=== PATIENT | male | born 1960 | race Caucasian/White ===

== ENCOUNTER 2017-04-16 08:42 | Observation (INO) | payer OTHER ==
[2017-04-16] MEDS ORDERED: ASPIRIN EC 325 MG TAB PO ONE ×2 (08:45→09:16)
[2017-04-16] MEDS ORDERED: FAMOTIDINE 20 MG TAB PO ONE (08:45)
[2017-04-16] MEDS ORDERED: NS 1,000 ML IV ONE (08:45)
[2017-04-16] MEDS ORDERED: diphenhydrAMINE 25 MG CAP PO ONE ×2 (08:45→09:16)
[2017-04-16] MEDS ORDERED: DIAZEPAM 5 MG TAB PO ONE (08:45)
--- NOTE | 2017-04-16 09:06 | CPEKG ---
Heart Rate: 58 RR Interval: 1034 P-R Interval: 168 QRSD Interval: 84 QT Interval: 412 QTC Interval: 405 P [place]: 42 QRS [place]: 10 T Wave [place]: 40 EKG Severity - NORMAL ECG - EKG Impression: SINUS RHYTHM Electronically Signed By: Mark Galeana 16-Apr-2017 10:36:25
--- NOTE | 2017-04-16 09:12 | PDHPUP ---
History & Physical Update H&P update statement: This history and physical update is based on an assessment of the patient which was completed after admission or registration (within 24 hours), but prior to the surgery/procedure. H&P update: H&P reviewed & patient examined, no change in patient's condition since H&P completed (Patient has continued to note chest discomfort (pains))
--- NOTE | 2017-04-16 09:12 | PDPROPOC ---
Sedation Plan of Care Sedation Plan of Care: vital signs stable, mental status noted, patient educated of risks, benefits, alternatives, patient can tolerate sedation ASA Classification: ASA 3 Planned drugs: fentanyl, midazolam Mallampati Score: Class 2 Mallampati Reference Image: Patient passed 3-3-2 rule?: Yes
[2017-04-16] MEDS ORDERED: FAMOTIDINE 20 MG TAB ONE (09:16)
[2017-04-16] MEDS ORDERED: DIAZEPAM 5 MG TAB ONE (09:16)
[2017-04-16 09:24] LABS: PLATELET COUNT 220 10^3/uL (150-400)
[2017-04-16 09:30] LABS: INR 1.06 (0.83-1.16)
[2017-04-16] MEDS ORDERED: fentaNYL 100 MCG/2 ML INJ ONE ×2 (09:59→11:15)
[2017-04-16] MEDS ORDERED: LIDOCAINE 1% 300 MG/30 ML SDV ONE (09:59)
[2017-04-16] MEDS ORDERED: MIDAZOLAM 2 MG/2 ML VIAL ONE ×3 (09:59→11:53)
[2017-04-16] MEDS ORDERED: IOPAMIDOL (ISOVUE-370) 150 ML BTL IV ONE ×2 (10:00→11:14)
[2017-04-16] MEDS ORDERED: BIVALIRUDIN 250 MG/5 ML VIAL IV ONE (11:14)
[2017-04-16] MEDS ORDERED: TEMAZEPAM 15 MG CAP PO PRN (12:34)
[2017-04-16] MEDS ORDERED: ONDANSETRON 4 MG/2 ML VIAL IVP PRN (12:34)
[2017-04-16] MEDS ORDERED: ATROPINE SULFATE 1 MG/10 ML SYR IVP PRN (12:34)
[2017-04-16] MEDS ORDERED: NITROGLYCERIN 0.4 MG BTL SL PRN (12:34)
--- NOTE | 2017-04-16 12:43 | PDDXCAT ---
Diagnostic Cath Note - . 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 No luminal irregularities were noted. LAD: Medium to large diameter vessel with a large, principal Diagonal in the mid LAD. Distal to the diagonal take off, there was a critical 80% lesion to the LAD. LCX: Medium diameter vessel with a widely patent stent to the mid LCX, distal to an OM (principal). There was mild haziness to the vessel just proximal to the stent with upwards of 30-40% stenosis noted. RCA: The RCA is the dominant vessel (PDA/ZAYNAB supply) with 20% stenosis proximally. No other appreciable CAD was noted. EDP: 23 mm Hg LVEF: 60% Wall motion: subtle anterior wall hypokinesis was noted. Complications: none Estimated blood loss: <50ml Closure method: Angioseal Assessment: Patient is a 56 y/o male with known CAD to the LCX with HTN and HLP , who presented to outpatient cardiology with complaints of chest pain/pressure similar to that which was noted prior to LCX stent. Critical mid LAD lesion was noted. Plan: Dr. Otilia Dasilva to perform PCI to the critical lesion Intervention: mid LAD Patient Problems: Problems Problem Status Onset Chest pain Acute
[2017-04-16] MEDS ORDERED: NS 1,000 ML IV SCH (12:45)
--- NOTE | 2017-04-16 12:46 | PDDXCAT ---
Diagnostic Cath Note - . Date: 04/16/17 Certified Diabetes Educator: Brown [employer] Coach: Brown Indication: CCC Class III and IV angina on medical treatment Estimated blood loss: <50ml Closure method: Angioseal Assessment: Successful PCI of the mid-LAD using a single drug coated stent. Intervention: Please refer to the diagnostic cardiac catheterization report by Dr. Villalta. Briefly, the patient is a 56-year-old male with a history of CAD and previous PCI of the circumflex. He presented with recurrent CCS class III to IV angina. Diagnostic cardiac catheterization demonstrated preserved left ventricular systolic function, a patent stent site in the circumflex, [id number] CAD in the RCA, and a high grade stenosis of 80-90% in the mid-LAD. Based on the patient's clinical history diagnostic angiography, the decision was made to perform PCI. The patient received intravenous Angiomax. A 6 Spanish CLS 3.5 guide catheter was advanced to the left main. An Intuition guide was advanced to the apical portion of the left anterior descending. Predilatation of the target lesion was done using a 2.5 x 10 mm Sprinter balloon. A 3.0 x 16 mm Synergy stent was positioned at the target lesion was deployed at high pressure. Final angiograms demonstrated 0% residual stenosis and DEREK-III flow. Patient Problems: Problems Problem Status Onset Chest pain Acute
--- NOTE | 2017-04-16 12:59 | CPEKG ---
Heart Rate: 52 RR Interval: 1154 P-R Interval: 196 QRSD Interval: 82 QT Interval: 420 QTC Interval: 391 P [place]: 75 QRS [place]: 38 T Wave [place]: 40 EKG Severity - NORMAL ECG - EKG Impression: SINUS RHYTHM Electronically Signed By: Harpreet Villalta 17-Apr-2017 10:22:52
[2017-04-16] MEDS: HYDROCODONE/APAP 5/325 TAB PO PRN ×2 (14:07→19:02)
[2017-04-16] MEDS ORDERED: MONTELUKAST SODIUM 10 MG TAB PO SCH (22:15)
[2017-04-16] MEDS: METOPROLOL TARTRATE 25 MG TAB PO SCH (22:19)
[2017-04-17] MEDS: HYDROCODONE/APAP 5/325 TAB PO PRN (04:04)
[2017-04-17] MEDS ORDERED: LACTULOSE 20 GM/30 ML UDCUP PO PRN (04:07)
[2017-04-17] MEDS ORDERED: BISACODYL 10 MG SUPP PR PRN (04:07)
[2017-04-17] MEDS ORDERED: MAGNESIUM HYDROXIDE 30 ML UDCUP PO PRN (04:07)
[2017-04-17] MEDS ORDERED: POLYETHYLENE GLYCOL 3350 17 GM PKT PO PRN (04:07)
[2017-04-17] MEDS ORDERED: SENNOSIDES 1 TAB PO ONE (04:32)
[2017-04-17 05:09] LABS: PLATELET COUNT 222 10^3/uL (150-400)
[2017-04-17 08:01] VITALS: BP 124/63; PULSE 65; RESP 16; TEMP 98.1; O2SAT 97
[2017-04-17] MEDS ORDERED: SENNOSIDES/DOCUSATE SODIUM TAB PO SCH (09:00)
[2017-04-17] MEDS ORDERED: PRASUGREL HCL 10 MG TAB PO SCH (09:00)
[2017-04-17] MEDS ORDERED: ASPIRIN EC 325 MG TAB PO SCH (09:00)
--- NOTE | 2017-04-17 09:01 | CPEKG ---
Heart Rate: 56 RR Interval: 1071 P-R Interval: 180 QRSD Interval: 82 QT Interval: 396 QTC Interval: 383 P [place]: 67 QRS [place]: 16 T Wave [place]: 36 EKG Severity - BORDERLINE ECG - EKG Impression: SINUS RHYTHM EKG Impression: PROBABLE LEFT ATRIAL ABNORMALITY Electronically Signed By: Harpreet Villalta 17-Apr-2017 10:22:57
--- NOTE | 2017-04-17 09:48 | ASMTCMCOM ---
CM Note CM Note Notes: 04/17/2017 Case Management Note Reviewed chart. There are no case management d/c needs identified d/t pt age, marital status, employment status and activity levels prior to admission. There are no PT or OT evals ordered at this time. Case Management d/c poc: anticipating independent with follow up as directed. Case Management available if needs change. Date Signed: 04/17/2017 09:48 AM Electronically Signed By:Tamika Pierce RN
[2017-04-17] MEDS: METOPROLOL TARTRATE 25 MG TAB PO SCH (10:11)
--- NOTE | 2017-04-17 15:33 | ASDISCHSUM ---
Discharge Information Plan Status:Home with No Needs Medically Cleared to Leave:04/16/2017 Discharge Date:04/17/2017 12:38 PM CM D/C Disposition:Home, Routine, Self-Care ADT D/C Disposition:Home, Routine, Self-Care Projected Discharge Date:04/17/2017 12:38 PM Transportation at D/C: Discharge Delay Reason: Follow-Up Date:04/17/2017 12:38 PM Discharge Slot: Final Diagnosis: Placement Information Patient Contact Information Contact Name:MARIANNE Relationship: Address:[address] City:[place] Alternate Phone: [facility]/Zip Code:[place] [address] Email: Financial Information Financial Class:HMO and PPO Plans Primary Plan Desc:[employer] [place] P[employer] Primary Plan Number:[id number] Secondary Plan Desc: Secondary Plan Number: Assessment Information [facility] CM Progress Note CM Note CM Note Notes: 04/17/2017 Case Management Note Reviewed chart. There are no case management d/c needs identified d/t pt age, marital status, employment status and activity levels prior to admission. There are no PT or OT evals ordered at this time. Case Management d/c poc: anticipating independent with follow up as directed. Case Management available if needs change. Date Signed: 04/17/2017 09:48 AM Electronically Signed By:Tamika Pierce RN LACE LACE Length of stay for Answers: 1 day current admission Acuity / Level of Answers: No Care: Did the patient have an inpatient admission? Comorbidities - select Answers: Congestive heart failure all that apply # of Emergency department Answers: 0 visits in the last 6 months Score: 3 Date Signed: 04/17/2017 03:32 PM Electronically Signed By:Tamika Pierce RN Intervention Information
--- NOTE | 2017-04-18 11:17 | GDS ---
[f rep st] DISCHARGE SUMMARY ADMIT DIAGNOSES: 1. Coronary artery disease. 2. Hypertension. 3. Hyperlipidemia. 4. Planned cardiac catheterization with possible stent placement. DISCHARGE DIAGNOSES: 1. Coronary artery disease. 2. Percutaneous coronary intervention of the right coronary artery. 3. Past percutaneous coronary intervention of the left circumflex. COURSE OF HOSPITALIZATION: This gentleman was seen in Cardiology Clinic as an outpatient with compla ints of chest pain and pressure similar to that prior to his previous stent to the left circumflex. Guanakito gallo was taken to the cardiac labor mediator by Dr. Harpreet Villalta, who found a critical lesion of the LAD. Dr. Calli Dasilva then did the intervention, placing a drug-eluting stent to the LAD lesion with no compl ications. He then was taken to PCU for overnight observation, where he has done well. He has been up ambulating. His right groin site is intact with no bleeding, induration or pain. He has had no chest pain or shortness of breath through the night. Telemetry shows a regular sinus rhythm with no arrhyth mias. At this time, he currently is stable for discharge. MEDICATIONS: He will go home on Effient 10 mg 1 tablet daily, Lopressor 25 mg twice daily, lisinopri l 2.5 mg daily, atorvastatin 40 mg daily, enteric-coated aspirin 325 mg daily, Singulair 10 mg at bed time, Wellbutrin XL 300 mg daily, Ritalin 20 mg twice daily, Viagra 100 mg daily as needed, herbal minaya pplements daily, albuterol inhaler as needed, Senokot 1-2 tablets twice daily as needed. ALLERGIES: He has no known drug allergies. EXAM ON DAY OF DISCHARGE: VITAL SIGNS: Blood pressure 124/63, heart rate 65 and regular, oxygen satu ration 97% on room air, temperature 36.7. EKG shows a sinus bradycardia with a ventricular rate of 48 . HEART: Rate is regular. No murmurs, rubs, gallops. LUNGS: Sounds are clear to auscultation. No whee zes, rales, or rhonchi. PERIPHERAL PULSES: Palpable bilaterally at 2+. Right groin site is intact wi th no bleeding, induration or pain. No femoral bruit noted. NEUROLOGIC: He is alert and oriented, and eager for discharge. LABS: His lipids showed his total cholesterol 108, triglyceride 53, HDL 48, and LDL 50. DISCHARGE PLAN: 1. He was given verbal and written groin site precautions, to be followed for 1 week. 2. No heavy lifting, pushing, pulling greater than 10 pounds. 3. No tub bath, okay to shower. 4. Should site bleed, hold continuous pressure and go to the nearest ER. 5. Keep bowel movements soft to avoid bearing down. 6. Exercise restrictions for only the 1st couple days with gradual 2-3 block walk a day and graduall y increase activity. 7. Participate in cardiac rehab program. 8. Follow up at [facility] in 7-10 days. At this time, he currently is stable for discharge. /[id number]/MODL
== END 2017-04-17 12:38 | disposition home or self-care (01) ==
LOC: FCATH 08:42 → F2W 12:32
PROVIDERS: ADMIT Internal Medicine Cardiovascular Disease; ATTEND Internal Medicine Cardiovascular Disease
DX: I25.119 Atherosclerotic heart disease of native coronary artery with unspecified angina pectoris (principal); I10 Essential (primary) hypertension; E78.5 Hyperlipidemia, unspecified
CPT/HCPCS: 92928; 93005; 93458; C1725; C1769; C1887; G0378; C1760; C1874; C9600; J0583; J1644; J2250; J2270; J2405; J3010; Q9967

== ENCOUNTER 2018-06-01 17:00 | Observation (INO) | payer OTHER | END 2018-06-02 18:26 | disposition home or self-care (01) | LOC: F2W 18:01 ==